=== PATIENT | female | born 1995 | race Caucasian/White ===

== ENCOUNTER 2017-05-07 20:40 | Emergency (ER) | payer BC ==
[2017-05-07] MEDS ORDERED: Sodium Chloride 0.9% 10 ML Syringe FLUSH PRN (20:50)
[2017-05-07] MEDS ORDERED: Sodium Chloride 0.9% 2.5 ML Syringe FLUSH PRN ×2 (20:50)
[2017-05-07] MEDS ORDERED: Sodium Chloride 0.9% 1,000 ML IV ONE (20:50)
--- NOTE | 2017-05-07 20:53 | EDM.PDOC ---
ED HPI GENERAL MEDICAL PROBLEM - General Chief Complaint: Abdominal Pain Stated Complaint: ABDOMINAL PAIN Time Seen by Provider: 05/07/17 20:47 - History of Present Illness INITIAL COMMENTS - FREE TEXT/NARRATIVE: HISTORY AND PHYSICAL: History of present illness: Patient's 22-year-old white female sensory concern of poor oral intake and possible dehydration she's had no vomiting or diarrhea vaginal discharge or irregular bleeding or other concern he states she had some mild abdominal discomfort this is nonlocalized and seems to have improved since arrival to ER patient states she's had similar episode in the past related dehydration 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 Review of systems: As per history of present illness and below otherwise all systems reviewed and negative. Past medical history: As per history of present illness and as reviewed below otherwise noncontributory. Surgical history: As per history of present illness and as reviewed below otherwise noncontributory. Social history: No reported history of drug or alcohol abuse. Family history: As per history of present illness and as reviewed below otherwise noncontributory. Physical exam: HEENT: Atraumatic, normocephalic, pupils reactive, negative for conjunctival pallor or scleral icterus, mucous membranes dry, throat clear, neck supple, nontender, trachea midline. Lungs: Clear to auscultation, breath sounds equal bilaterally, chest nontender. Heart: S1S2, regular, negative for clicks, rubs, or JVD. Abdomen: Soft, nondistended, nontender. Negative for masses or hepatosplenomegaly. Negative for costovertebral tenderness. Pelvis: Stable nontender. Genitourinary: Deferred. Rectal: Deferred. Extremities: Atraumatic, negative for cords or calf pain. Neurovascular unremarkable. Neuro: Awake, alert, oriented. Cranial nerves II through XII unremarkable. Cerebellum unremarkable. Motor and sensory unremarkable throughout. Exam nonfocal. Diagnostics: CBC CMP UA hCG Therapeutics: Saline 1 L bolus Impression: #1 nonspecific abdominal pain #2 dehydration Definitive disposition and diagnosis as appropriate pending reevaluation and review of above. - Related Data Allergies Allergy/AdvReac Type Severity Reaction Status Date / Time No Known Allergies Allergy Verified 05/07/17 20:48 Home Meds: Home Meds Albuterol [Proair HFA] 1 puff INH ASDIRECTED 05/07/17 [History] ED ROS GENERAL - Review of Systems Review Of Systems: ROS reveals no pertinent complaints other than HPI. ED EXAM, GENERAL - Physical Exam Exam: See Below (See dictation) Departure - Departure Time of Disposition: 20:52 Disposition: Home, Self-Care 01 Condition: Good Clinical Impression: Abdominal pain, Dehydration - Discharge Information Referrals: PCP,None [Primary Care Provider] - Additional Instructions: The following information is given to patients seen in the emergency department who are being discharged to home. This information is to outline your options for follow-up care. We provide all patients seen in our emergency department with a follow-up referral. The need for follow-up, as well as the timing and circumstances, are variable depending upon the specifics of your emergency department visit. If you don't have a primary care physician on staff, we will provide you with a referral. We always advise you to contact your personal physician following an emergency department visit to inform them of the circumstance of the visit and for follow-up with them and/or the need for any referrals to a consulting specialist. The emergency department will also refer you to a specialist when appropriate. This referral assures that you have the opportunity for followup care with a specialist. All of these measure are taken in an effort to provide you with optimal care, which includes your followup. Under all circumstances we always encourage you to contact your private physician who remains a resource for coordinating your care. When calling for followup care, please make the office aware that this follow-up is from your recent emergency room visit. If for any reason you are refused follow-up, please contact the [facility] emergency department at and asked to speak to the emergency department charge nurse. Push fluids clear liquids as directed follow-up primary medical doctor as needed as discussed and return as needed as discussed
[2017-05-07 21:28] LABS: CHLORIDE,CL 101 mmol/L (98-107); SODIUM,NA 138 mmol/L (136-145)
== END 2017-05-07 22:00 | disposition home or self-care (01) ==
LOC: MW.ED 20:40
DX: R10.9 Unspecified abdominal pain (principal); E86.0 Dehydration
CPT/HCPCS: 36415; 80053; 81001; 81025; 85025; 96360; 99284; J7040; 99283

== ENCOUNTER 2017-10-22 20:05 | Emergency (ER) | payer BC ==
--- NOTE | 2017-10-22 20:46 | EDM.PDOC ---
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 The patient states that she had several things occurred today that triggered her to become upset and angry including her mother asking for money and then she told nursing that she felt somewhat confused and the next thing she recalls is that she had a scissor and she was going to stab herself in the abdomen. This occurred in her school dorm situation hence why the school counselor and linux administrator are here with the patient. According to the patient she has seen the counselor in the past when she has had stress or issues but not on any regular basis and last saw the counselor about one month ago. She has never had any regular counseling except when she was a child and removed from her parents care. She has no known psychiatric diagnosis and she does have a long-standing history of cutting to relieve stress and anxiety that she started as a teenager. She said she is to cut very frequently and now only does it about once a month but did cut herself yesterday on bilateral wrists. She has no pain in that location. She tells me that she has had at least 3 prior episodes where she has grabbed a sharp object such as a scissor and knife and wanted to stab herself in the abdomen but something is always interrupted that thought process and broken her chain of thought and stopped her from doing it. Today her boyfriend came into the room and saw her which she was doing and stopped her. She says she is not sure what triggers this and why she does this and does want help. She currently does not feel like she wants to stab or kill herself but she cannot explain where those feelings come from. She says that she is scared that this may happen again and she would like help for that. She takes no medications has no social history and denies . Currently she has no systemic complaints or complaints of pain or issues and has been eating and drinking normally. The patient has never had inpatient psychiatric care or any formal regimen of psychiatric care in the past Review of systems: As per history of present illness and below otherwise all systems reviewed and negative. Past medical history: As per history of present illness and as reviewed below otherwise noncontributory. Surgical history: As per history of present illness and as reviewed below otherwise noncontributory. Social history: No reported history of drug or alcohol abuse. Family history: As per history of present illness and as reviewed below otherwise noncontributory. Physical exam: General: Well-developed well-nourished female who is nontoxic and vital signs are noted by me. The patient is quiet but does laugh intermittently and is interactive and cooperative HEENT: Atraumatic, normocephalic, pupils reactive, negative for conjunctival pallor or scleral icterus, mucous membranes moist, throat clear, neck supple, nontender, trachea midline. Lungs: Clear to auscultation, breath sounds equal bilaterally, chest nontender. Heart: S1S2, regular rate and rhythm no overt murmurs Abdomen: Soft, nondistended, nontender. Negative for masses or hepatosplenomegaly. Negative for costovertebral tenderness. Pelvis: Stable nontender. Genitourinary: Deferred. Rectal: Deferred. Extremities: Atraumatic except for bilateral wrists where there are very superficial scab-like areas seen in the linear fashion without surrounding erythema soft tissue swelling or bleeding. The areas are nontender and distally in the wrist and hand neurovascular is intact. The legs are, negative for cords or calf pain. Neurovascular unremarkable. Neuro: Awake, alert, oriented. Cranial nerves II through XII unremarkable. Cerebellum unremarkable. Motor and sensory unremarkable throughout. Exam nonfocal. Diagnostics: CBC CMP alcohol level TSH UA UDS UCG Therapeutics: ANGELINA was performed on this patient although she is cooperative 8: Case was discussed with Dr. Luis Carver who accepts the patient for transfer and he is the psychiatrist on-call at [facility] in [place]. I discussed with the patient at length the need for this transfer and further evaluation and she is agreeable. Impression: Suicidal ideation/attempt with history of same Definitive disposition and diagnosis as appropriate pending reevaluation and review of above. - Related Data Allergies Allergy/AdvReac Type Severity Reaction Status Date / Time No Known Allergies Allergy Verified 05/07/17 20:48 Home Meds: Home Meds Albuterol [Proair HFA] 1 puff INH ASDIRECTED 05/07/17 [History] Past Medical History - Past Health History Medical/Surgical History: Denies Medical/Surgical History Social & Family History - Family History Family Medical History: Noncontributory ED ROS GENERAL - Review of Systems Review Of Systems: ROS reveals no pertinent complaints other than HPI. ED EXAM, GENERAL - Physical Exam Exam: See Below (see dictation) Course - Vital Signs Last Recorded V/S: Last Vital Signs Temp 36.2 C 10/22/17 20:20 Pulse 90 10/22/17 20:20 Resp BP 113/82 10/22/17 20:20 Pulse Ox 98 10/22/17 20:20 - Orders/Labs/Meds Orders: Active Orders 24 hr Category Date Time Status DRUG SCREEN, URINE [URCHEM] Stat Lab 10/22/17 20:45 Ordered HCG QUALITATIVE,URINE [URCHEM] Stat Lab 10/22/17 20:45 Ordered UA W/MICROSCOPIC [URIN] Stat Lab 10/22/17 20:45 Ordered Labs: Laboratory Tests 10/22/17 10/22/17 10/22/17 Range/Units 20:45 20:45 20:45 WBC (4.0-11.0) K/uL RBC (4.30-5.90) M/uL Hgb (12.0-16.0) g/dL Hct (36.0-46.0) % MCV (80.0-98.0) fL MCH (27.0-32.0) pg MCHC (31.0-37.0) g/dL RDW Std Deviation (28.0-62.0) fl RDW Coeff of Harmeet (11.0-15.0) % Plt Count (150-400) K/uL MPV (7.40-12.00) fL Neut % (Auto) (48.0-80.0) % Lymph % (Auto) (16.0-40.0) % Weber % (Auto) (0.0-15.0) % Eos % (Auto) (0.0-7.0) % Baso % (Auto) (0.0-1.5) % Neut # (Auto) (1.4-5.7) K/uL Lymph # (Auto) (0.6-2.4) K/uL Weber # (Auto) (0.0-0.8) K/uL Eos # (Auto) (0.0-0.7) K/uL Baso # (Auto) (0.0-0.1) K/uL Nucleated RBC % /100WBC Nucleated RBCs # K/uL Sodium (136-145) mmol/L Potassium (3.5-5.1) mmol/L Chloride (98-107) mmol/L Carbon Dioxide (21.0-32.0) mmol/L BUN (7.0-18.0) mg/dL Creatinine (0.6-1.0) mg/dL Est Cr Clr Drug Dosing Estimated GFR (MDRD) ml/min Glucose (74-106) mg/dL Calcium (8.5-10.1) mg/dL Total Bilirubin (0.2-1.0) mg/dL AST (15-37) IU/L ALT (14-63) IU/L Alkaline Phosphatase (46-116) U/L Total Protein (6.4-8.2) g/dL Albumin (3.4-5.0) g/dL Globulin (2.0-3.5) g/dL Albumin/Globulin Ratio (1.3-2.8) TSH 3rd Generation (0.36-3.74) uIU/mL Urine Color YELLOW Urine Appearance SLT CLOUDY Urine pH 6.0 (5.0-8.0) Ur Specific [facility] >= 1.030 (1.001-1.035) Urine Protein NEGATIVE (NEGATIVE) mg/dL Urine Glucose (UA) NEGATIVE (NEGATIVE) mg/dL Urine Ketones TRACE H (NEGATIVE) mg/dL Urine Occult Blood NEGATIVE (NEGATIVE) Urine Nitrite NEGATIVE (NEGATIVE) Urine Bilirubin SMALL H (NEGATIVE) Urine Urobilinogen 0.2 (<2.0) EU/dL Ur Leukocyte Esterase NEGATIVE (NEGATIVE) Urine RBC 0-2 (0-2/HPF) Urine WBC 1-3 (0-5/HPF) Ur Epithelial Cells FEW (NONE-FEW) Amorphous Sediment FEW (NEGATIVE) Urine Bacteria FEW (NEGATIVE) Urine Mucus MODERATE (NONE-MOD) Urinalysis Comment Urine HCG, Qual NEGATIVE (NEGATIVE) Urine Opiates Screen NEGATIVE (NEGATIVE) Ur Oxycodone Screen NEGATIVE (NEGATIVE) Urine Methadone Screen NEGATIVE (NEGATIVE) Ur Barbiturates Screen NEGATIVE (NEGATIVE) Ur Phencyclidine Scrn NEGATIVE (NEGATIVE) Ur Amphetamine Screen NEGATIVE (NEGATIVE) U Methamphetamines Scrn NEGATIVE (NEGATIVE) U Benzodiazepines Scrn NEGATIVE (NEGATIVE) U Cocaine Metab Screen NEGATIVE (NEGATIVE) U Marijuana (THC) Screen NEGATIVE (NEGATIVE) Ethyl Alcohol mg/dL 10/22/17 10/22/17 Range/Units 20:50 20:50 WBC 6.53 (4.0-11.0) K/uL RBC 4.90 (4.30-5.90) M/uL Hgb 13.5 (12.0-16.0) g/dL Hct 42.3 (36.0-46.0) % MCV 86.3 (80.0-98.0) fL MCH 27.6 (27.0-32.0) pg MCHC 31.9 (31.0-37.0) g/dL RDW Std Deviation 44.5 (28.0-62.0) fl RDW Coeff of Harmeet 14 (11.0-15.0) % Plt Count 298 (150-400) K/uL MPV 9.80 (7.40-12.00) fL Neut % (Auto) 62.3 (48.0-80.0) % Lymph % (Auto) 32.3 (16.0-40.0) % Weber % (Auto) 4.1 (0.0-15.0) % Eos % (Auto) 0.8 (0.0-7.0) % Baso % (Auto) 0.5 (0.0-1.5) % Neut # (Auto) 4.1 (1.4-5.7) K/uL Lymph # (Auto) 2.1 (0.6-2.4) K/uL Weber # (Auto) 0.3 (0.0-0.8) K/uL Eos # (Auto) 0.1 (0.0-0.7) K/uL Baso # (Auto) 0.0 (0.0-0.1) K/uL Nucleated RBC % 0.0 /100WBC Nucleated RBCs # 0 K/uL Sodium 140 (136-145) mmol/L Potassium 3.7 (3.5-5.1) mmol/L Chloride 103 (98-107) mmol/L Carbon Dioxide 26.6 (21.0-32.0) mmol/L BUN 15 (7.0-18.0) mg/dL Creatinine 1.0 (0.6-1.0) mg/dL Est Cr Clr Drug Dosing TNP Estimated GFR (MDRD) > 60.0 ml/min Glucose 87 (74-106) mg/dL Calcium 9.5 (8.5-10.1) mg/dL Total Bilirubin 0.5 (0.2-1.0) mg/dL AST 11 L (15-37) IU/L ALT 15 (14-63) IU/L Alkaline Phosphatase 62 (46-116) U/L Total Protein 8.3 H (6.4-8.2) g/dL Albumin 4.5 (3.4-5.0) g/dL Globulin 3.8 H (2.0-3.5) g/dL Albumin/Globulin Ratio 1.2 L (1.3-2.8) TSH 3rd Generation 1.96 (0.36-3.74) uIU/mL Urine Color Urine Appearance Urine pH (5.0-8.0) Ur Specific [facility] (1.001-1.035) Urine Protein (NEGATIVE) mg/dL Urine Glucose (UA) (NEGATIVE) mg/dL Urine Ketones (NEGATIVE) mg/dL Urine Occult Blood (NEGATIVE) Urine Nitrite (NEGATIVE) Urine Bilirubin (NEGATIVE) Urine Urobilinogen (<2.0) EU/dL Ur Leukocyte Esterase (NEGATIVE) Urine RBC (0-2/HPF) Urine WBC (0-5/HPF) Ur Epithelial Cells (NONE-FEW) Amorphous Sediment (NEGATIVE) Urine Bacteria (NEGATIVE) Urine Mucus (NONE-MOD) Urinalysis Comment Urine HCG, Qual (NEGATIVE) Urine Opiates Screen (NEGATIVE) Ur Oxycodone Screen (NEGATIVE) Urine Methadone Screen (NEGATIVE) Ur Barbiturates Screen (NEGATIVE) Ur Phencyclidine Scrn (NEGATIVE) Ur Amphetamine Screen (NEGATIVE) U Methamphetamines Scrn (NEGATIVE) U Benzodiazepines Scrn (NEGATIVE) U Cocaine Metab Screen (NEGATIVE) U Marijuana (THC) Screen (NEGATIVE) Ethyl Alcohol <3 mg/dL Departure - Departure Time of Disposition: 21:37 Disposition: DC/Tfer to Psych Hosp/Unit 65 Condition: Good Clinical Impression: Suicidal ideation, Suicide attempt - Discharge Information Referrals: PCP,None [Primary Care Provider] - Forms: ED Department Discharge - My Orders Last 24 Hours: My Active Orders 10/22/17 20:45 DRUG SCREEN, URINE [URCHEM] Stat HCG QUALITATIVE,URINE [URCHEM] Stat UA W/MICROSCOPIC [URIN] Stat - Assessment/Plan Last 24 Hours: My Active Orders 10/22/17 20:45 DRUG SCREEN, URINE [URCHEM] Stat HCG QUALITATIVE,URINE [URCHEM] Stat UA W/MICROSCOPIC [URIN] Stat
[2017-10-22 21:27] LABS: CHLORIDE,CL 103 mmol/L (98-107); SODIUM,NA 140 mmol/L (136-145)
== END 2017-10-22 22:40 ==
LOC: MW.ED 20:05
DX: T14.91XA Suicide attempt, initial encounter (principal)
CPT/HCPCS: 36415; 80053; 80305; 81001; 81025; 84443; 85025; 99285; G0480; 99284

== ENCOUNTER 2019-08-27 09:15 | Inpatient (IN) | payer BC, MEDICAID, OTHER ==
[2019-08-27] MEDS ORDERED: Sodium Chloride 0.9% 2.5 ML Syringe FLUSH PRN (14:57)
[2019-08-27] MEDS ORDERED: Lidocaine 1% 50 ML MDV INJECT PRN (14:57)
[2019-08-27] MEDS ORDERED: Carboprost Tromethamine 250 MCG/1 ML Amp IM PRN (14:57)
[2019-08-27] MEDS ORDERED: Sodium Chloride 0.9% 10 ML Syringe FLUSH PRN (14:57)
[2019-08-27] MEDS ORDERED: Sodium Chloride 0.9% 10 ML SDV IV PRN (14:57)
[2019-08-27] MEDS ORDERED: Ondansetron 4 MG/2 ML SDV IVPUSH PRN (14:57)
[2019-08-27] MEDS ORDERED: Methylergonovine 0.2 MG/1 ML Amp IM PRN (14:57)
[2019-08-27] MEDS ORDERED: Tranexamic Acid 1,000 MG in Sodium Chloride 0.9% 100 ML IV PRN (14:57)
[2019-08-27] MEDS ORDERED: Misoprostol 200 MCG Tab PO PRN (14:57)
[2019-08-27] MEDS ORDERED: Water For Irrigation,Sterile 1,000 ML Container IRR PRN (14:57)
[2019-08-27] MEDS ORDERED: Butorphanol 1 MG/ML SDV IVPUSH PRN (14:57)
[2019-08-27] MEDS ORDERED: Nalbuphine 10 MG/1 ML Vial IVPUSH PRN (14:57)
[2019-08-27] MEDS ORDERED: Misoprostol 25 MCG (1/4 of 100 MCG) Tab VAG PRN ×2 (14:57)
[2019-08-27] MEDS ORDERED: Terbutaline 1 MG/ML SDV SUBCUT PRN (14:57)
[2019-08-27] MEDS ORDERED: Oxytocin/0.9 % Sodium Chloride 30 UNIT/500 ML BAG IV SCH ×2 (15:00)
[2019-08-27] MEDS: Lactated Ringers 1,000 ML IV SCH (15:46)
[2019-08-28] MEDS: Lactated Ringers 1,000 ML IV SCH ×2 (00:20→07:09)
[2019-08-28] MEDS ORDERED: fentaNYL 100 MCG/2 ML SDV ONE ×2 (00:20→00:48)
[2019-08-28] MEDS ORDERED: Ropivacaine HCl/PF 0 ML ONE (00:21)
[2019-08-28] MEDS ORDERED: Ropivacaine HCl/PF 100 ML ONE (00:49)
--- NOTE | 2019-08-28 01:12 | PCM.PREANE ---
Preanesthetic Assessment - Procedure Proposed Procedure: Pre-anesthetic assessment done at 0025, charted at 0110. Continuous labor epidural. - Anesthesia/Transfusion/Family Hx Anesthesia History: No Prior Anesthesia (Denies previous anesthetics, including dental) Family History of Anesthesia Reaction: No Transfusion History: No Prior Transfusion(s) - Review of Systems General: No Symptoms Pulmonary: No Symptoms Cardiovascular: No Symptoms Gastrointestinal: No Symptoms Neurological: No Symptoms Other: Reports: None - Physical Assessment NPO Status Date: 08/28/19 (Clear liquids) NPO Status Time: 01:08 Height: 1.63 m Weight: 71.214 kg ASA Class: 2 Mental Status: Alert & Oriented x3 Dentition: Reports: Normal Dentition ROM/Head Extension: Full Lungs: Normal Respiratory Effort Cardiovascular: Regular Rate, Regular Rhythm - Lab Values: Laboratory Last Values WBC 8.10 K/uL (4.0-11.0) 08/27/19 14:40 RBC 3.72 M/uL (4.30-5.90) L 08/27/19 14:40 Hgb 9.6 g/dL (12.0-16.0) L 08/27/19 14:40 Hct 31.2 % (36.0-46.0) L 08/27/19 14:40 MCV 83.9 fL (80.0-98.0) 08/27/19 14:40 MCH 25.8 pg (27.0-32.0) L 08/27/19 14:40 MCHC 30.8 g/dL (31.0-37.0) L 08/27/19 14:40 RDW Std Deviation 42.6 fl (28.0-62.0) 08/27/19 14:40 RDW Coeff of Harmeet 14 % (11.0-15.0) 08/27/19 14:40 Plt Count 270 K/uL (150-400) 08/27/19 14:40 MPV 10.40 fL (7.40-12.00) 08/27/19 14:40 Nucleated RBC % 0.0 /100WBC 08/27/19 14:40 Nucleated RBCs # 0 K/uL 08/27/19 14:40 COVID-19 (MINA) NEGATIVE (NEGATIVE) 08/27/19 14:40 Blood Type A POSITIVE 08/27/19 14:40 Antibody Screen NEGATIVE 08/27/19 14:40 - Allergies Allergies/Adverse Reactions: Allergies Allergy/AdvReac Type Severity Reaction Status Date / Time No Known Allergies Allergy Verified 05/07/17 20:48 - Acknowledgements Anesthesia Type Planned: Epidural (Discussed risks, benefits, alternatives with patient. All questions answered and concerns addressed.) Pt an Appropriate Candidate for the Planned Anesthesia: Yes Alternatives and Risks of Anesthesia Discussed w Pt/Guardian: Yes Pt/Guardian Understands and Agrees with Anesthesia Plan: Yes PreAnesthesia Questionnaire - Past Health History Medical/Surgical History: Denies Medical/Surgical History Respiratory History: Reports: Asthma Other Respiratory History: Albuterol inhaler Other OB/BYN History: Current Psychiatric History: Reports: Anxiety, Depression - SUBSTANCE USE Smoking Status *Q: Never Smoker Tobacco Use Within Last Twelve Months: No Recreational Drug Use History: No - HOME MEDS Home Medications: Home Meds Albuterol [Proair HFA] 1 puff INH ASDIRECTED PRN 05/07/17 [History] #103/Iron Fumarate/Fa [ ] 1 tab PO DAILY 08/27/19 [History] - CURRENT (IN HOUSE) MEDS Current Meds: Current Medications Butorphanol Tartrate (Stadol) 1 mg IVPUSH Q1H PRN PRN Reason: Pain Last Admin: 08/27/19 23:12 Dose: 1 mg Documented by: Carboprost Tromethamine (Hemabate Ds) 250 mcg IM ASDIRECTED PRN PRN Reason: Post Hemorrhage Lactated Ringer's (Ringers, Lactated) 1,000 mls @ 150 mls/hr IV ASDIRECTED DAMION Last Admin: 08/28/19 00:20 Dose: 999 mls/hr Documented by: Oxytocin/Sodium Chloride (Oxytocin 30 Unit/500 Ml-Ns) 30 unit in 500 mls @ 999 mls/hr IV TITRATE DAMION Tranexamic Acid 1,000 mg/ (Sodium Chloride) 110 mls @ 660 mls/hr IV ONETIME PRN PRN Reason: Bleeding Oxytocin/Sodium Chloride (Oxytocin 30 Unit/500 Ml-Ns) 30 unit in 500 mls @ 2 mls/hr IV TITRATE DAMION; Protocol Lidocaine HCl (Xylocaine 1%) 50 ml INJECT ONETIME PRN PRN Reason: Laceration repair Methylergonovine Maleate (Methergine) 0.2 mg IM ASDIRECTED PRN PRN Reason: Post Hemorrhage Misoprostol (Cytotec) 200 mcg PO ONETIME PRN PRN Reason: Post Hemorrhage Misoprostol (Cytotec) 25 mcg VAG ONETIME PRN PRN Reason: Cervical Ripening Last Admin: 08/27/19 15:46 Dose: 25 mcg Documented by: Misoprostol (Cytotec) 25 mcg VAG Q6H PRN PRN Reason: Cervical Ripening Last Admin: 08/27/19 21:54 Dose: 25 mcg Documented by: Nalbuphine HCl (Nubain) 10 mg IVPUSH Q1H PRN PRN Reason: Pain (severe 7-10) Ondansetron HCl (Zofran) 4 mg IVPUSH Q6H PRN PRN Reason: Nausea/Vomiting Sodium Chloride (Saline Flush) 10 ml FLUSH ASDIRECTED PRN PRN Reason: Keep Vein Open Sodium Chloride (Saline Flush) 2.5 ml FLUSH ASDIRECTED PRN PRN Reason: Keep Vein Open Last Admin: 08/27/19 23:14 Dose: 2.5 ml Documented by: Sodium Chloride (Normal Saline) 10 ml IV ASDIRECTED PRN PRN Reason: IV Use Sterile Water (Sterile Water For Irrigation) 1,000 ml IRR ASDIRECTED PRN PRN Reason: delivery Terbutaline Sulfate (Brethine) 0.25 mg SUBCUT ASDIRECTED PRN PRN Reason: Tacysystole Discontinued Medications Fentanyl (Sublimaze) Confirm Administered Dose 100 mcg .ROUTE .STK-MED ONE Stop: 08/28/19 00:21 Fentanyl (Sublimaze) Confirm Administered Dose 100 mcg .ROUTE .STK-MED ONE Stop: 08/28/19 00:49 Ropivacaine (Naropin 0.2%) Confirm Administered Dose 100 mls @ as directed .ROUTE .STK-MED ONE Stop: 08/28/19 00:22 Ropivacaine (Naropin 0.2%) Confirm Administered Dose 100 mls @ as directed .ROUTE .STK-MED ONE Stop: 08/28/19 00:50
--- NOTE | 2019-08-28 09:45 | PCM.DEL ---
L & D Note - General Info Date of Service: 08/28/19 - Delivery Note Labor: Spontaneous, Augmented by Oxytocin Cervical Ripening Method: Misoprostil Delivery Outcome: Livebirth Delivery Method: Spontaneous Vaginal Delivery-Single Delivery Mode: Spontaneous Presentation: Left Occiput Anterior (THANH) Nuchal Cord: None Anesthesia Type: Epidural Amniotic Fluid Description: Meconium Stained Episiotomy Type: None Laceration: None Placenta: Spontaneous Cord: 3 Vessels Estimated Blood Loss: 300 [place]: Suctioned, Bulb Syringe, Stimulated, Warmed, [place] Used, Warmer Used Score 1 min: 8 Score 5 min: 9 Delivery Comments (Free Text/Narrative):: Liveborn female infant born at 0915, weight 3420g, apgars 8 and 9. - General Info Date of Service: 08/28/19 - Patient Data Weight - Most Recent: 157 lb I&O - Last 24 Hours: Intake & Output 08/27/19 08/28/19 08/28/19 22:59 06:59 14:59 Output Total 600 Balance -600 Lab Results Last 24 Hours: Laboratory Results - last 24 hr 08/27/19 08/27/19 08/27/19 Range/Units 14:40 14:40 14:40 WBC 8.10 (4.0-11.0) K/uL RBC 3.72 L (4.30-5.90) M/uL Hgb 9.6 L (12.0-16.0) g/dL Hct 31.2 L (36.0-46.0) % MCV 83.9 (80.0-98.0) fL MCH 25.8 L (27.0-32.0) pg MCHC 30.8 L (31.0-37.0) g/dL RDW Std Deviation 42.6 (28.0-62.0) fl RDW Coeff of Harmeet 14 (11.0-15.0) % Plt Count 270 (150-400) K/uL MPV 10.40 (7.40-12.00) fL Nucleated RBC % 0.0 /100WBC Nucleated RBCs # 0 K/uL COVID-19 (MINA) NEGATIVE (NEGATIVE) Blood Type A POSITIVE Antibody Screen NEGATIVE Med Orders - Current: Current Medications Butorphanol Tartrate (Stadol) 1 mg IVPUSH Q1H PRN PRN Reason: Pain Last Admin: 08/27/19 23:12 Dose: 1 mg Documented by: Carboprost Tromethamine (Hemabate Ds) 250 mcg IM ASDIRECTED PRN PRN Reason: Post Hemorrhage Lactated Ringer's (Ringers, Lactated) 1,000 mls @ 150 mls/hr IV ASDIRECTED DAMION Last Admin: 08/28/19 07:09 Dose: 150 mls/hr Documented by: Oxytocin/Sodium Chloride (Oxytocin 30 Unit/500 Ml-Ns) 30 unit in 500 mls @ 999 mls/hr IV TITRATE DAMION Tranexamic Acid 1,000 mg/ (Sodium Chloride) 110 mls @ 660 mls/hr IV ONETIME PRN PRN Reason: Bleeding Oxytocin/Sodium Chloride (Oxytocin 30 Unit/500 Ml-Ns) 30 unit in 500 mls @ 2 mls/hr IV TITRATE DAMION; Protocol Last Titration: 08/28/19 08:15 Dose: 4 munits/min, 4 mls/hr Documented by: Lidocaine HCl (Xylocaine 1%) 50 ml INJECT ONETIME PRN PRN Reason: Laceration repair Methylergonovine Maleate (Methergine) 0.2 mg IM ASDIRECTED PRN PRN Reason: Post Hemorrhage Misoprostol (Cytotec) 200 mcg PO ONETIME PRN PRN Reason: Post Hemorrhage Misoprostol (Cytotec) 25 mcg VAG ONETIME PRN PRN Reason: Cervical Ripening Last Admin: 08/27/19 15:46 Dose: 25 mcg Documented by: Misoprostol (Cytotec) 25 mcg VAG Q6H PRN PRN Reason: Cervical Ripening Last Admin: 08/27/19 21:54 Dose: 25 mcg Documented by: Nalbuphine HCl (Nubain) 10 mg IVPUSH Q1H PRN PRN Reason: Pain (severe 7-10) Ondansetron HCl (Zofran) 4 mg IVPUSH Q6H PRN PRN Reason: Nausea/Vomiting Sodium Chloride (Saline Flush) 10 ml FLUSH ASDIRECTED PRN PRN Reason: Keep Vein Open Sodium Chloride (Saline Flush) 2.5 ml FLUSH ASDIRECTED PRN PRN Reason: Keep Vein Open Last Admin: 08/27/19 23:14 Dose: 2.5 ml Documented by: Sodium Chloride (Normal Saline) 10 ml IV ASDIRECTED PRN PRN Reason: IV Use Sterile Water (Sterile Water For Irrigation) 1,000 ml IRR ASDIRECTED PRN PRN Reason: delivery Terbutaline Sulfate (Brethine) 0.25 mg SUBCUT ASDIRECTED PRN PRN Reason: Tacysystole Discontinued Medications Fentanyl (Sublimaze) Confirm Administered Dose 100 mcg .ROUTE .STK-MED ONE Stop: 08/28/19 00:21 Fentanyl (Sublimaze) Confirm Administered Dose 100 mcg .ROUTE .STK-MED ONE Stop: 08/28/19 00:49 Ropivacaine (Naropin 0.2%) Confirm Administered Dose 100 mls @ as directed .ROUTE .STK-MED ONE Stop: 08/28/19 00:22 Ropivacaine (Naropin 0.2%) Confirm Administered Dose 100 mls @ as directed .ROUTE .STK-MED ONE Stop: 08/28/19 00:50 - Problem List & Annotations (1) Vaginal delivery SNOMED Code(s): 328229843 Code(s): O80 - ENCOUNTER FOR FULL-TERM UNCOMPLICATED DELIVERY Status: Acute Current Visit: Yes - Problem List Review Problem List Initiated/Reviewed/Updated: Yes - Assessment Assessment:: 24yo s/p . Manual exploration of uterus for retained membrane fragments. - Plan Plan:: Admit to . Routine care Encourage Monitor Lochia Unasyn 3g q6H for 24 hours
[2019-08-28] MEDS ORDERED: Tranexamic Acid 1,000 MG in Sodium Chloride 0.9% 100 ML IV PRN (10:30)
[2019-08-28] MEDS ORDERED: Acetaminophen 500 MG Tab PO PRN ×2 (10:30)
[2019-08-28] MEDS ORDERED: Lanolin 100% Cream 7 GM Tube TOP PRN (10:30)
[2019-08-28] MEDS ORDERED: Docusate Sodium 100 MG Cap PO PRN (10:30)
[2019-08-28] MEDS ORDERED: Methylergonovine 0.2 MG/1 ML Amp IM PRN (10:30)
[2019-08-28] MEDS ORDERED: Ibuprofen 800 MG Tab PO PRN (10:30)
[2019-08-28] MEDS ORDERED: Witch Hazel Medicated Pads 40/Jar TOP PRN (10:30)
[2019-08-28] MEDS ORDERED: Bisacodyl 10 MG Supp RECTAL PRN (10:30)
[2019-08-28] MEDS ORDERED: Ibuprofen 400 MG Tab PO PRN (10:30)
[2019-08-28] MEDS ORDERED: Benzocaine/Menthol 20%-0.5% Spray 78 GM Cannister TOP PRN (10:30)
[2019-08-28] MEDS ORDERED: Ampicillin/Sulbactam Na 3 GM in Sodium Chloride 0.9% 100 ML IV ONE (10:31)
[2019-08-28] MEDS ORDERED: Albuterol 8 GM Inhaler INH PRN (10:32)
--- NOTE | 2019-08-28 14:27 | OR ---
SURGEON: Anamaria Chavira M.D. DATE OF PROCEDURE: 08/28/2019 PREOPERATIVE DIAGNOSIS: 40-3/7 week intrauterine with oligohydramnios. POSTOPERATIVE DIAGNOSIS: 40-3/7 week intrauterine with oligohydramnios. PROCEDURES: 1. Cytotec and Pitocin induction of labor. 2. Term spontaneous vaginal delivery. 3. Manual exploration of the uterus. PRIMARY SURGEON: Anamaria Chavira MD. PACKING ROOM SUPERVISOR: DIOGENES Elizabeth. ANESTHESIA: Epidural. ESTIMATED BLOOD LOSS: Less than 200 mL. FINDINGS: Liveborn female. score of 8 and 9, weighing 9 pounds 7 ounces. Placenta delivered Silva with trailing membranes, which required manual exploration of the uterus. COMPLICATIONS: None known. DISPOSITION: Mother and baby are in LDR in good condition. BRIEF HISTORY: This is a 24-year-old female, she is G1, P0. She presented for postdate biophysical profile with an LIZZY of 5. She was 40-2/7 weeks' gestation. The cervix was 1+, 50%, -2 station. She received 2 doses of Cytotec. She went into spontaneous labor. She had spontaneous rupture of membranes. She progressed to 8 to 9 cm with occasional variable decelerations throughout labor, but overall category 1 heart tones, and over the following 3-hour time period, she did not progress to complete. Therefore, Pitocin 2 milliunits per minute was initiated. She did progress to complete. DESCRIPTION OF PROCEDURE: With the patient in dorsal lithotomy position, the patient pushed over 1-hour time period to a 5+ station, at which time, the head was delivered spontaneously and atraumatically over the perineum with support with subsequent delivery of the infant's shoulders and body without any difficulty. The infant was bulb suctioned by nose and mouth, and after 2 minutes, the cord was doubly clamped and cut. The infant was handed to the nurse in attendance at delivery. The was a liveborn female, scores were 8 and 9, weighing 9 pounds and 7 ounces. Upon inspection of the pelvis and perineum, there were no periurethral, vaginal sidewall, cervical, rectal, or perineal laceration. Pitocin was initiated after delivery of the to assist with delivery of the placenta after cord ABGs had been collected. The placenta delivered fairly rapidly and spontaneously Silva with trailing membranes, and with fundal massage and gentle traction on the membranes, they did not release, and therefore, manual exploration was utilized to complete removal of the amniotic membranes, confirming that all the membranes were removed. The uterus was firm and not boggy. The final sponge, needle, and instrument counts were correct. There were no known complications. Mother and baby remained in LDR in good condition. Mother will be continued on IV antibiotics for 24 hours due to the manual exploration of the uterus. DAVID / ANGELITA /[id number]
[2019-08-28] MEDS: Ampicillin/Sulbactam Na 1.5 GM in Sodium Chloride 0.9% 50 ML IV SCH ×2 (17:08→22:57)
[2019-08-29] MEDS: Ampicillin/Sulbactam Na 1.5 GM in Sodium Chloride 0.9% 50 ML IV SCH ×2 (05:38→12:19)
--- NOTE | 2019-08-29 07:04 | PCM.PNPP ---
<Ian Portillo - Last Filed: 08/29/19 07:01> - General Info Date of Service: 08/29/19 Subjective Update: Pt seen at bedside this morning. Feeling well. Her pain has been well- controlled. Bleeding moderate. Ambulating well and tolerating oral intake. has been difficult thus far. Functional Status: Reports: Pain Controlled - Review of Systems General: Reports: No Symptoms HEENT: Reports: No Symptoms Pulmonary: Reports: No Symptoms Cardiovascular: Reports: No Symptoms Gastrointestinal: Reports: Abdominal Pain. Denies: Diarrhea, Nausea, Vomiting Genitourinary: Reports: No Symptoms Musculoskeletal: Reports: No Symptoms Skin: Reports: No Symptoms Neurological: Reports: No Symptoms Psychiatric: Reports: No Symptoms - General Info Date of Service: 08/29/19 - Patient Data Vital Signs - Most Recent: Last Vital Signs Temp 97.6 F 08/28/19 19:26 Pulse 84 08/28/19 19:26 Resp 14 08/28/19 19:26 BP 122/75 08/28/19 19:26 Pulse Ox 98 08/28/19 19:26 Weight - Most Recent: 71.214 kg Lab Results - Last 24 Hours: Laboratory Results - last 24 hr 08/28/19 08/29/19 Range/Units 09:15 06:19 Hgb 7.7 L (12.0-16.0) g/dL Hct 24.9 L (36.0-46.0) % Cord ABG pH 7.207 (7.18-7.38) Cord ABG Base Excess -6 (-10--2) Cord VBG pH 7.362 (7.25-7.45) Cord VBG Base Excess -5 (-10--2) Med Orders - Current: Current Medications Acetaminophen (Tylenol Extra Strength) 500 mg PO Q4H PRN PRN Reason: Pain Acetaminophen (Tylenol Extra Strength) 1,000 mg PO Q4H PRN PRN Reason: Pain Albuterol (Ventolin Hfa) 0 gm INH Q4H PRN PRN Reason: Dyspnea Benzocaine/Menthol (Dermoplast Pain Relief 20%-0.5% Flushing) 78 gm TOP ASDIRECTED PRN PRN Reason: Perineal Comfort Measure Last Admin: 08/28/19 10:53 Dose: 1 sprays Documented by: Bisacodyl (Dulcolax) 10 mg RECTAL ONETIME PRN PRN Reason: Constipation Docusate Sodium (Colace) 100 mg PO BID PRN PRN Reason: Constipation Last Admin: 08/28/19 10:54 Dose: 100 mg Documented by: Emollient Ointment (Lansinoh Hpa) 0 gm TOP ASDIRECTED PRN PRN Reason: Sore Nipples Last Admin: 08/28/19 10:53 Dose: 7 gram Documented by: Tranexamic Acid 1,000 mg/ (Sodium Chloride) 110 mls @ 660 mls/hr IV ONETIME PRN PRN Reason: Bleeding Ampicillin Sodium/Sulbactam (Sodium 1.5 gm/ Sodium Chloride) 50 mls @ 100 mls/hr IV Q6H [facility] Last Admin: 08/29/19 05:38 Dose: 100 mls/hr Documented by: Ibuprofen (Motrin) 400 mg PO Q4H PRN PRN Reason: Pain Ibuprofen (Motrin) 800 mg PO Q6H PRN PRN Reason: Pain Last Admin: 08/28/19 10:53 Dose: 800 mg Documented by: Methylergonovine Maleate (Methergine) 0.2 mg IM ONETIME PRN PRN Reason: Excessive Vaginal Bleeding #103/Iron Fumarate/Fa [ ] 1 each PO DAILY DAMION Berkowitz (Casandra) 1 pad TOP ASDIRECTED PRN PRN Reason: comfort care Last Admin: 08/28/19 10:53 Dose: 1 case Documented by: Discontinued Medications Butorphanol Tartrate (Stadol) 1 mg IVPUSH Q1H PRN PRN Reason: Pain Last Admin: 08/27/19 23:12 Dose: 1 mg Documented by: Carboprost Tromethamine (Hemabate Ds) 250 mcg IM ASDIRECTED PRN PRN Reason: Post Hemorrhage Fentanyl (Sublimaze) Confirm Administered Dose 100 mcg .ROUTE .STK-MED ONE Stop: 08/28/19 00:21 Fentanyl (Sublimaze) Confirm Administered Dose 100 mcg .ROUTE .STK-MED ONE Stop: 08/28/19 00:49 Lactated Ringer's (Ringers, Lactated) 1,000 mls @ 150 mls/hr IV ASDIRECTED [facility] Last Infusion: 08/28/19 09:15 Dose: 0 mls/hr Documented by: Oxytocin/Sodium Chloride (Oxytocin 30 Unit/500 Ml-Ns) 30 unit in 500 mls @ 999 mls/hr IV TITRATE DAMION Tranexamic Acid 1,000 mg/ (Sodium Chloride) 110 mls @ 660 mls/hr IV ONETIME PRN PRN Reason: Bleeding Oxytocin/Sodium Chloride (Oxytocin 30 Unit/500 Ml-Ns) 30 unit in 500 mls @ 2 mls/hr IV TITRATE DAMION; Protocol Last Titration: 08/28/19 09:15 Dose: 999 munits/min, 999 mls/hr Documented by: Ropivacaine (Naropin 0.2%) Confirm Administered Dose 0 mls @ as directed .ROUTE .STK-MED ONE Stop: 08/28/19 00:22 Ropivacaine (Naropin 0.2%) Confirm Administered Dose 100 mls @ as directed .ROUTE .[facility]-MED ONE Stop: 08/28/19 00:50 Ampicillin Sodium/Sulbactam (Sodium 3 gm/ Sodium Chloride) 100 mls @ 200 mls/hr IV ONETIME ONE Stop: 08/28/19 11:00 Last Admin: 08/28/19 10:52 Dose: 200 mls/hr Documented by: Lidocaine HCl (Xylocaine 1%) 50 ml INJECT ONETIME PRN PRN Reason: Laceration repair Methylergonovine Maleate (Methergine) 0.2 mg IM ASDIRECTED PRN PRN Reason: Post Hemorrhage Misoprostol (Cytotec) 200 mcg PO ONETIME PRN PRN Reason: Post Hemorrhage Misoprostol (Cytotec) 25 mcg VAG ONETIME PRN PRN Reason: Cervical Ripening Last Admin: 08/27/19 15:46 Dose: 25 mcg Documented by: Misoprostol (Cytotec) 25 mcg VAG Q6H PRN PRN Reason: Cervical Ripening Last Admin: 08/27/19 21:54 Dose: 25 mcg Documented by: Nalbuphine HCl (Nubain) 10 mg IVPUSH Q1H PRN PRN Reason: Pain (severe 7-10) Ondansetron HCl (Zofran) 4 mg IVPUSH Q6H PRN PRN Reason: Nausea/Vomiting Sodium Chloride (Saline Flush) 10 ml FLUSH ASDIRECTED PRN PRN Reason: Keep Vein Open Sodium Chloride (Saline Flush) 2.5 ml FLUSH ASDIRECTED PRN PRN Reason: Keep Vein Open Last Admin: 08/27/19 23:14 Dose: 2.5 ml Documented by: Sodium Chloride (Normal Saline) 10 ml IV ASDIRECTED PRN PRN Reason: IV Use Sterile Water (Sterile Water For Irrigation) 1,000 ml IRR ASDIRECTED PRN PRN Reason: delivery Last Admin: 08/28/19 09:53 Dose: 1,000 ml Documented by: Terbutaline Sulfate (Brethine) 0.25 mg SUBCUT ASDIRECTED PRN PRN Reason: Tacysystole - Infant Interaction Support Person: Significant Other - Recovery Exam Fundal Tone: Firm Fundal Level: 1 Fingerbreadths Below Umbilicus Fundal Placement: Midline Lochia Amount: Small Lochia Color: Rubra/Red Perineum Description: Edematous Episiotomy/Laceration: None Bladder Status: Voiding - Exam General: Alert, Oriented, No Acute Distress HEENT: Pupils Equal, EOMI Neck: Supple, No JVD Lungs: Clear to Auscultation, Normal Respiratory Effort. No: Crackles, Rales, Rhonchi, Wheezing Cardiovascular: Regular Rate, Regular Rhythm, No Murmurs GI/Abdominal Exam: Normal Bowel Sounds, Soft, No Mass, Tender. No: Guarding, Rigid Extremities: Normal Inspection, Normal Range of Motion, Non-Tender, No Pedal Edema Skin: Warm, Dry, Intact Neurological: No New Focal Deficit, Normal Speech, Normal Tone Psy/Mental Status: Alert, Normal Affect, Normal Mood - Problem List & Annotations (1) Vaginal delivery SNOMED Code(s): 612470162 Code(s): O80 - ENCOUNTER FOR FULL-TERM UNCOMPLICATED DELIVERY Status: Acute Current Visit: Yes - Problem List Review Problem List Initiated/Reviewed/Updated: Yes - Assessment Assessment:: 24yo s/p . Manual exploration of uterus for retained membrane fragments. PPD#1 - Plan Plan:: Admit to . Routine care Encourage Monitor Lochia Unasyn 3g q6H for 24 hours Discharge today <Martha Choi - Last Filed: 08/29/19 08:16> - Patient Data Vital Signs - Most Recent: Last Vital Signs Temp 36.9 C 08/29/19 08:00 Pulse 82 08/29/19 08:00 Resp 14 08/29/19 08:00 BP 150/63 H 08/29/19 08:00 Pulse Ox 100 08/29/19 08:00 Lab Results - Last 24 Hours: Laboratory Results - last 24 hr 08/28/19 08/29/19 Range/Units 09:15 06:19 Hgb 7.7 L (12.0-16.0) g/dL Hct 24.9 L (36.0-46.0) % Cord ABG pH 7.207 (7.18-7.38) Cord ABG Base Excess -6 (-10--2) Cord VBG pH 7.362 (7.25-7.45) Cord VBG Base Excess -5 (-10--2) Med Orders - Current: Current Medications Acetaminophen (Tylenol Extra Strength) 500 mg PO Q4H PRN PRN Reason: Pain Acetaminophen (Tylenol Extra Strength) 1,000 mg PO Q4H PRN PRN Reason: Pain Albuterol (Ventolin Hfa) 0 gm INH Q4H PRN PRN Reason: Dyspnea Benzocaine/Menthol (Dermoplast Pain Relief 20%-0.5% [place]) 78 gm TOP ASDIRECTED PRN PRN Reason: Perineal Comfort Measure Last Admin: 08/28/19 10:53 Dose: 1 sprays Documented by: Bisacodyl (Dulcolax) 10 mg RECTAL ONETIME PRN PRN Reason: Constipation Docusate Sodium (Colace) 100 mg PO BID PRN PRN Reason: Constipation Last Admin: 08/28/19 10:54 Dose: 100 mg Documented by: Emollient Ointment (Lansinoh Hpa) 0 gm TOP ASDIRECTED PRN PRN Reason: Sore Nipples Last Admin: 08/28/19 10:53 Dose: 7 gram Documented by: Tranexamic Acid 1,000 mg/ (Sodium Chloride) 110 mls @ 660 mls/hr IV ONETIME PRN PRN Reason: Bleeding Ampicillin Sodium/Sulbactam (Sodium 1.5 gm/ Sodium Chloride) 50 mls @ 100 mls/hr IV Q6H DAMION Last Admin: 08/29/19 05:38 Dose: 100 mls/hr Documented by: Ibuprofen (Motrin) 400 mg PO Q4H PRN PRN Reason: Pain Ibuprofen (Motrin) 800 mg PO Q6H PRN PRN Reason: Pain Last Admin: 08/28/19 10:53 Dose: 800 mg Documented by: Methylergonovine Maleate (Methergine) 0.2 mg IM ONETIME PRN PRN Reason: Excessive Vaginal Bleeding #103/Iron Fumarate/Fa [ ] 1 each PO DAILY [facility] Nichelle Berkowitz (Tucks) 1 pad TOP ASDIRECTED PRN PRN Reason: comfort care Last Admin: 08/28/19 10:53 Dose: 1 case Documented by: Discontinued Medications Butorphanol Tartrate (Stadol) 1 mg IVPUSH Q1H PRN PRN Reason: Pain Last Admin: 08/27/19 23:12 Dose: 1 mg Documented by: Carboprost Tromethamine (Hemabate Ds) 250 mcg IM ASDIRECTED PRN PRN Reason: Post Hemorrhage Fentanyl (Sublimaze) Confirm Administered Dose 100 mcg .ROUTE .STK-MED ONE Stop: 08/28/19 00:21 Fentanyl (Sublimaze) Confirm Administered Dose 100 mcg .ROUTE .STK-MED ONE Stop: 08/28/19 00:49 Lactated Ringer's (Ringers, Lactated) 1,000 mls @ 150 mls/hr IV ASDIRECTED DAMION Last Infusion: 08/28/19 09:15 Dose: 0 mls/hr Documented by: Oxytocin/Sodium Chloride (Oxytocin 30 Unit/500 Ml-Ns) 30 unit in 500 mls @ 999 mls/hr IV TITRATE DAMION Tranexamic Acid 1,000 mg/ (Sodium Chloride) 110 mls @ 660 mls/hr IV ONETIME PRN PRN Reason: Bleeding Oxytocin/Sodium Chloride (Oxytocin 30 Unit/500 Ml-Ns) 30 unit in 500 mls @ 2 mls/hr IV TITRATE DAMION; Protocol Last Titration: 08/28/19 09:15 Dose: 999 munits/min, 999 mls/hr Documented by: Ropivacaine (Naropin 0.2%) Confirm Administered Dose 0 mls @ as directed .ROUTE .STK-MED ONE Stop: 08/28/19 00:22 Ropivacaine (Naropin 0.2%) Confirm Administered Dose 100 mls @ as directed .ROUTE .STK-MED ONE Stop: 08/28/19 00:50 Ampicillin Sodium/Sulbactam (Sodium 3 gm/ Sodium Chloride) 100 mls @ 200 mls/hr IV ONETIME ONE Stop: 08/28/19 11:00 Last Admin: 08/28/19 10:52 Dose: 200 mls/hr Documented by: Lidocaine HCl (Xylocaine 1%) 50 ml INJECT ONETIME PRN PRN Reason: Laceration repair Methylergonovine Maleate (Methergine) 0.2 mg IM ASDIRECTED PRN PRN Reason: Post Hemorrhage Misoprostol (Cytotec) 200 mcg PO ONETIME PRN PRN Reason: Post Hemorrhage Misoprostol (Cytotec) 25 mcg VAG ONETIME PRN PRN Reason: Cervical Ripening Last Admin: 08/27/19 15:46 Dose: 25 mcg Documented by: Misoprostol (Cytotec) 25 mcg VAG Q6H PRN PRN Reason: Cervical Ripening Last Admin: 08/27/19 21:54 Dose: 25 mcg Documented by: Nalbuphine HCl (Nubain) 10 mg IVPUSH Q1H PRN PRN Reason: Pain (severe 7-10) Ondansetron HCl (Zofran) 4 mg IVPUSH Q6H PRN PRN Reason: Nausea/Vomiting Sodium Chloride (Saline Flush) 10 ml FLUSH ASDIRECTED PRN PRN Reason: Keep Vein Open Sodium Chloride (Saline Flush) 2.5 ml FLUSH ASDIRECTED PRN PRN Reason: Keep Vein Open Last Admin: 08/27/19 23:14 Dose: 2.5 ml Documented by: Sodium Chloride (Normal Saline) 10 ml IV ASDIRECTED PRN PRN Reason: IV Use Sterile Water (Sterile Water For Irrigation) 1,000 ml IRR ASDIRECTED PRN PRN Reason: delivery Last Admin: 08/28/19 09:53 Dose: 1,000 ml Documented by: Terbutaline Sulfate (Brethine) 0.25 mg SUBCUT ASDIRECTED PRN PRN Reason: Tacysystole - Problem List & Annotations (1) Vaginal delivery SNOMED Code(s): 115434558 Code(s): O80 - ENCOUNTER FOR FULL-TERM UNCOMPLICATED DELIVERY Status: Acute Current Visit: Yes - Plan Plan:: Agree with the above. Patient desires discharge home today, reviewed discharge instructions. All questions answered.
--- NOTE | 2019-08-29 07:08 | PCM48HPAN ---
Post Anesthesia Note - EVALUATION WITHIN 48HRS OF ANESTHETIC Vital Signs in Normal Range: Yes Patient Participated in Evaluation: Yes Respiratory Function Stable: Yes Airway Patent: Yes Cardiovascular Function Stable: Yes Hydration Status Stable: Yes Pain Control Satisfactory: Yes Nausea and Vomiting Control Satisfactory: Yes Mental Status Recovered: Yes Vital Signs: Last Vital Signs Temp 97.6 F 08/28/19 19:26 Pulse 84 08/28/19 19:26 Resp 14 08/28/19 19:26 BP 122/75 08/28/19 19:26 Pulse Ox 98 08/28/19 19:26 - COMMENTS/OBSERVATIONS Free Text/Narrative:: HgB 9.6 to 7.6 this AM
[2019-08-29] MEDS ORDERED: [UNRECOGNIZED DRUG - OTHER] PO SCH (09:00)
== END 2019-08-29 15:50 | disposition home or self-care (01) | DRG 560 ==
LOC: MW.OB 09:15 → OBSVTOIN 08-28 09:15 → MW.OB 08-28 12:09
PROVIDERS: ADMIT Obstetrics & Gynecology; ATTEND Obstetrics & Gynecology
PROC: 10E0XZZ Delivery of Products of Conception, External Approach (ICD-10-PCS; principal; 2019-08-28)
PROC: 3E0P7VZ Introduction of Hormone into Female Reproductive, Via Natural or Artificial Opening (ICD-10-PCS; 2019-08-28)
PROC: 3E0R3BZ Introduction of Anesthetic Agent into Spinal Canal, Percutaneous Approach (ICD-10-PCS; 2019-08-28)
DX: O41.03X0 Oligohydramnios, third trimester, not applicable or unspecified (principal); Z3A.40 40 weeks gestation of pregnancy; Z37.0 Single live birth; O76 Abnormality in fetal heart rate and rhythm complicating labor and delivery; O99.52 Diseases of the respiratory system complicating childbirth; J45.909 Unspecified asthma, uncomplicated; Z11.59 Encounter for screening for other viral diseases; O77.0 Labor and delivery complicated by meconium in amniotic fluid
CPT/HCPCS: 01967; 36415; 59025; 59409; 82803; 85014; 85018; 85027; 86592; 86850; 86900; 86901; A9270-GY; J0295; J0595; J2590; J7050; J7120; U0002

== ENCOUNTER 2020-05-14 12:12 | Emergency (ER) | payer BC, MEDICAID ==
[2020-05-14] MEDS ORDERED: Sodium Chloride 0.9% 1,000 ML IV ONE (12:47)
[2020-05-14] MEDS ORDERED: Acetaminophen 500 MG Tab PO ONE (12:47)
--- NOTE | 2020-05-14 13:37 | EDM.PDOC ---
ED HPI GENERAL MEDICAL PROBLEM - General Chief Complaint: REVENUE [employer]TER Problem Stated Complaint: STOMACHE PAIN 9WKS Time Seen by Provider: 05/14/20 12:17 Source of Information: Reports: Patient History Limitations: Reports: No Limitations - History of Present Illness INITIAL COMMENTS - FREE TEXT/NARRATIVE: HISTORY AND PHYSICAL: History of present illness: Patient is a 24-year-old female who presents emergency room today from the [facility] with concern of lower abdominal cramping that patient describes as "it feels like I am having labor contractions ". Patient states she is 9 weeks in gestation and follows along with Dr. Chavira at [facility]. Patient states that last night she started having lower abdominal cramping with 2 episodes of vomiting in the middle of the night. Patient denies any vaginal bleeding or change in discharge. She describes it as sharp and positional and states it does feel the same as contractions from when she gave . Patient states she made an appointment and saw Dr. Chavira's PA provider, Shavonne Krishnamurthy. Patient states that she had an ultrasound today, just prior to arrival to the ED and was told "baby looks okay "but was instructed to come to the emergency room due to her pain. Patient states she also had a vaginal exam today by her OBGYN and was told that everything was fine. Patient denies any associative symptoms but states that she has had a decrease in appetite and knows that she does not drink enough fluids since being . Patient denies any abdominal trauma or injury. Patient denies fever, chills, chest pain, shortness of breath, or cough. Denies headache, neck stiff ness, change in vision, syncope, or near syncope. Denies nausea, vomiting, diarrhea, constipation, or dysuria. Has not noted any blood in urine or stool. Review of systems: As per history of present illness and below otherwise all systems reviewed and negative. Past medical history: As per history of present illness and as reviewed below otherwise noncontributory. Surgical history: As per history of present illness and as reviewed below otherwise noncontributory. Social history: See social history for further information Family history: As per history of present illness and as reviewed below otherwise noncontributory. Physical exam: General: Patient is alert, oriented, and in no acute distress. Patient laying comfortably on exam table. Vitals stable and reviewed by me. HEENT: Atraumatic, normocephalic, pupils equal and reactive bilaterally, negative for conjunctival pallor or scleral icterus, mucous membranes moist, TMs normal bilaterally, throat clear, neck supple, nontender, trachea midline. No drooling or trismus noted. No meningeal signs. No hot potato voice noted. Lungs: Clear to auscultation, breath sounds equal bilaterally, chest nontender. Heart: S1S2, regular rate and rhythm without overt murmur Abdomen: Soft, nondistended, mild-moderate suprapubic tenderness without guarding, negative rebound, negative matthews. Negative for masses or hepatosplenomegaly. Negative for costovertebral tenderness. Pelvis: Stable nontender. Genitourinary: Deferred. Rectal: Deferred. Skin: Intact, warm, dry. No lesions or rashes noted. Extremities: Atraumatic, negative for cords or calf pain. Neurovascular unremarkable. Neuro: Awake, alert, oriented. Cranial nerves II through XII unremarkable. Cerebellum unremarkable. Motor and sensory unremarkable throughout. Exam nonfocal. Notes: On initial exam, patient well-appearing, non-toxic, and vitally stable. She does have mild to moderate suprapubic tenderness without guarding, negative rebound or Matthews sign. Will obtain routine lab work, give 1L bolus on NS and Tylenol, and Abd/US complete of the abdomen and reassess patient. Patient did have a transvaginal ultrasound today that was faxed to our ER from [facility] that shows a live intrauterine gestation at 9 weeks with no acute findings. Patient offered vaginal exam but declines as "she just had one" with her obgyn just before arrival to the ED. WBC count is normal at 5.46 with remainder of labwork unremarkable. UA shows no signs of infection. Abd complete US shows no acute findings. Discussed with patient that I cannot rule out appendicitis at this time; as mother was concerned of this. However, with a normal WBC count, the description of her pain and remainder of labwork unremarkable, my suspicion clinically is not typical for appendicitis. I discussed that in order to diagnose appendicitis would require a CT scam/ All risks vs benefits discussed with patient and mother of CT scan and expresses understanding and mutual decision made with patient and her mother to monitor symptoms closely at home and strict return precautions thoroughly discussed. On reevaluation of patient, she remains well-appearing, nontoxic and vitals are stable. She does express some mild improvement of her symptoms with Tylenol and fluids today. Discussed importance for follow-up with her RE[employer]UE [employer] provider. Voices understanding and is agreeable to plan of care. Denies any further questions or concerns at this time. Diagnostics: CBC, CMP, UA, Lipase, Abd complete US, hcg quant, rh/blood type Therapeutics: NS, Tylenol Prescription: None Impression: Suprapubic abdominal pain Intrauterine , 9 weeks Plan: 1. Pelvic rest until cleared by your OBGYN (no tampons, sex, etc...) 2. Tylenol as needed for pain management. This is safe to use in . 3. Follow up with your REVENUE STAMP C[employer]TER as discussed. Strict return precautions as we discussed. Return to the ED as needed and as discussed. Definitive disposition and diagnosis as appropriate pending reevaluation and review of above. 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 ED EXAM, GENERAL - Physical Exam Exam: See Below (see dictation) Course - Vital Signs Last Recorded V/S: Last Vital Signs Temp 97.6 F 05/14/20 12:29 Pulse 88 05/14/20 12:29 Resp 18 05/14/20 12:29 BP 105/62 04/02/21 12:29 Pulse Ox 98 05/14/20 12:29 - Orders/Labs/Meds Labs: Laboratory Tests 05/14/20 05/14/20 05/14/20 Range/Units 13:02 13:02 13:02 WBC 5.46 (4.0-11.0) K/uL RBC 4.69 (4.30-5.90) M/uL Hgb 12.1 (12.0-16.0) g/dL Hct 38.7 (36.0-46.0) % MCV 82.5 (80.0-98.0) fL MCH 25.8 L (27.0-32.0) pg MCHC 31.3 (31.0-37.0) g/dL RDW Std Deviation 47.9 (28.0-62.0) fl RDW Coeff of [place] 16 H (11.0-15.0) % Plt Count 210 (150-400) K/uL MPV 10.40 (7.40-12.00) fL Neut % (Auto) 87.4 H (48.0-80.0) % Lymph % (Auto) 9.0 L (16.0-40.0) % [place] % (Auto) 2.7 (0.0-15.0) % Eos % (Auto) 0.7 (0.0-7.0) % Baso % (Auto) 0.2 (0.0-1.5) % Neut # (Auto) 4.8 (1.4-5.7) K/uL Lymph # (Auto) 0.5 L (0.6-2.4) K/uL [place] # (Auto) 0.2 (0.0-0.8) K/uL Eos # (Auto) 0.0 (0.0-0.7) K/uL Baso # (Auto) 0.0 (0.0-0.1) K/uL Nucleated RBC % 0.0 /100WBC Nucleated RBCs # 0 K/uL Sodium 138 (136-145) mmol/L Potassium 3.9 (3.5-5.1) mmol/L Chloride 103 (98-107) mmol/L Carbon Dioxide 24.1 (21.0-32.0) mmol/L BUN 16 (7.0-18.0) mg/dL Creatinine 0.7 (0.6-1.0) mg/dL Est Cr Clr Drug Dosing 103.40 mL/min Estimated GFR (MDRD) > 60.0 ml/min Glucose 92 (74-106) mg/dL Calcium 8.5 (8.5-10.1) mg/dL Total Bilirubin 0.4 (0.2-1.0) mg/dL AST 14 L (15-37) IU/L ALT 24 (14-63) IU/L Alkaline Phosphatase 58 (46-116) U/L Total Protein 7.8 (6.4-8.2) g/dL Albumin 3.7 (3.4-5.0) g/dL Globulin 4.1 H (2.6-4.0) g/dL Albumin/Globulin Ratio 0.9 (0.9-1.6) Lipase (73-393) U/L HCG, Quant 596402.0 mIU/mL Urine Color Urine Appearance Urine pH (5.0-8.0) Ur Specific [place] (1.001-1.035) Urine Protein (NEGATIVE) mg/dL Urine Glucose (UA) (NEGATIVE) mg/dL Urine Ketones (NEGATIVE) mg/dL Urine Occult Blood (NEGATIVE) Urine Nitrite (NEGATIVE) Urine Bilirubin (NEGATIVE) Urine Urobilinogen (<2.0) EU/dL Ur Leukocyte Esterase (NEGATIVE) Blood Type A POSITIVE 05/14/20 05/14/20 Range/Units 13:02 13:40 WBC (4.0-11.0) K/uL RBC (4.30-5.90) M/uL Hgb (12.0-16.0) g/dL Hct (36.0-46.0) % MCV (80.0-98.0) fL MCH (27.0-32.0) pg MCHC (31.0-37.0) g/dL RDW Std Deviation (28.0-62.0) fl RDW Coeff of [place] (11.0-15.0) % Plt Count (150-400) K/uL MPV (7.40-12.00) fL Neut % (Auto) (48.0-80.0) % Lymph % (Auto) (16.0-40.0) % [place] % (Auto) (0.0-15.0) % Eos % (Auto) (0.0-7.0) % Baso % (Auto) (0.0-1.5) % Neut # (Auto) (1.4-5.7) K/uL Lymph # (Auto) (0.6-2.4) K/uL [place] # (Auto) (0.0-0.8) K/uL Eos # (Auto) (0.0-0.7) K/uL Baso # (Auto) (0.0-0.1) K/uL Nucleated RBC % /100WBC Nucleated RBCs # K/uL Sodium (136-145) mmol/L Potassium (3.5-5.1) mmol/L Chloride (98-107) mmol/L Carbon Dioxide (21.0-32.0) mmol/L BUN (7.0-18.0) mg/dL Creatinine (0.6-1.0) mg/dL Est Cr Clr Drug Dosing mL/min Estimated GFR (MDRD) ml/min Glucose (74-106) mg/dL Calcium (8.5-10.1) mg/dL Total Bilirubin (0.2-1.0) mg/dL AST (15-37) IU/L ALT (14-63) IU/L Alkaline Phosphatase (46-116) U/L Total Protein (6.4-8.2) g/dL Albumin (3.4-5.0) g/dL Globulin (2.6-4.0) g/dL Albumin/Globulin Ratio (0.9-1.6) Lipase 74 (73-393) U/L HCG, Quant mIU/mL Urine Color YELLOW Urine Appearance CLEAR Urine pH 5.0 (5.0-8.0) Ur Specific [place] >= 1.030 (1.001-1.035) Urine Protein NEGATIVE (NEGATIVE) mg/dL Urine Glucose (UA) NEGATIVE (NEGATIVE) mg/dL Urine Ketones NEGATIVE (NEGATIVE) mg/dL Urine Occult Blood NEGATIVE (NEGATIVE) Urine Nitrite NEGATIVE (NEGATIVE) Urine Bilirubin NEGATIVE (NEGATIVE) Urine Urobilinogen 0.2 (<2.0) EU/dL Ur Leukocyte Esterase NEGATIVE (NEGATIVE) Blood Type Meds: Medications Discontinued Medications Generic Name Dose Route Start Last Admin Trade Name Freq PRN Reason Stop Dose Admin Acetaminophen 1,000 mg 04/02/21 12:47 05/14/20 13:02 Acetaminophen 500 Mg Tab PO 05/14/20 12:48 1,000 mg ONETIME ONE Administration Sodium Chloride 1,000 mls @ 999 mls/hr 05/14/20 12:47 05/14/20 13:02 Normal Saline IV 05/14/20 13:47 999 mls/hr STAT ONE Administration Departure - Departure Time of Disposition: 14:29 Disposition: Home, Self-Care 01 Clinical Impression: Suprapubic abdominal pain, Intrauterine - Discharge Information Referrals: Gely Carreon NP [Primary Care Provider] - Forms: ED Department Discharge Additional Instructions: The following information is given to patients seen in the emergency department who are being discharged to home. This information is to outline your options for follow-up care. We provide all patients seen in our emergency department with a follow-up referral. The need for follow-up, as well as the timing and circumstances, are variable depending upon the specifics of your emergency department visit. If you don't have a primary care physician on staff, we will provide you with a referral. We always advise you to contact your personal physician following an emergency department visit to inform them of the circumstance of the visit and for follow-up with them and/or the need for any referrals to a consulting specialist. The emergency department will also refer you to a specialist when appropriate. This referral assures that you have the opportunity for follow-up care with a specialist. All of these measure are taken in an effort to provide you with optimal care, which includes your follow-up. Under all circumstances we always encourage you to contact your private physician who remains a resource for coordinating your care. When calling for follow-up care, please make the office aware that this follow-up is from your recent emergency room visit. If for any reason you are refused follow-up, please contact the [facility] Emergency Department at and asked to speak to the emergency department charge nurse. [facility] [address], [place] [address] [address] 1. Pelvic rest until cleared by your OBGYN (no tampons, sex, etc...) 2. Tylenol as needed for pain management. This is safe to use in . 3. Follow up with your REVENUE STAMP CUTTER as discussed. Strict return precautions as we discussed. Return to the ED as needed and as discussed. Sepsis Event Note (ED) - Evaluation Sepsis Screening Result: No Definite Risk - Focused Exam Vital Signs: Vital Signs Temp Pulse Resp BP Pulse Ox 05/14/20 12:29 97.6 F 88 18 105/62 98
[2020-05-14 14:01] LABS: BLOOD UREA NITROGEN,BUN 16 mg/dL (7.0-18.0); CARBON DIOXIDE,CO2 24.1 mmol/L (21.0-32.0); CHLORIDE,CL 103 mmol/L (98-107); GLUCOSE RANDOM 92 mg/dL (74-106); POTASSIUM,K 3.9 mmol/L (3.5-5.1); SODIUM,NA 138 mmol/L (136-145)
--- NOTE | 2020-05-14 14:06 | US ---
INDICATION: Right upper quadrant abdominal pain. TECHNIQUE: Ultrasound abdomen complete. Sonographic images of the entire abdomen were obtained using mckeon-scale and color Doppler. COMPARISON: None. FINDINGS: Liver: Normal in size and echotexture. No masses. No intrahepatic biliary dilatation. Gallbladder: No stones or sludge. Normal wall thickness. No pericholecystic fluid. Common bile duct: 3 mm. Pancreas: Imaged portion is unremarkable. Spleen: Normal in size and appearance. Kidneys: Both kidneys are normal in size. Normal echotexture and cortex. No masses, stones, or hydronephrosis. Vasculature: Proximal abdominal aorta and IVC are normal in caliber. IMPRESSION: Unremarkable abdomen ultrasound. Dictated by Agusto Nunes MD @ May 14 2020 2:02PM Signed by Dr. Agusto Nunes @ May 14 2020 2:05PM
== END 2020-05-14 14:51 | disposition home or self-care (01) ==
LOC: MW.ED 12:12
DX: O99.891 Other specified diseases and conditions complicating pregnancy (principal); R10.30 Lower abdominal pain, unspecified; O99.511 Diseases of the respiratory system complicating pregnancy, first trimester; J45.909 Unspecified asthma, uncomplicated; Z3A.09 9 weeks gestation of pregnancy
CPT/HCPCS: 36415; 76700; 80053; 81003; 83690; 84702; 85025; 86900; 86901; 99284; A9270; J7030